=== PATIENT | female | born 1980 | race Caucasian/White ===

== ENCOUNTER → 2016-09-23 | Outpatient (CLI) | payer OTHER ==
--- NOTE | 2016-09-23 18:57 | US ---
Dear Elayne Alvarez CNM, Thank you for sending your patient, Claudia Barr, to us for an US and consultation to assess fet al anatomy. As you know, the patient is a 36 y.o. G1, P0 at 19 weeks and 6 days with an EDC of 7 based on LMP and 10 week ultrasound. Her has been uncomplicated to date. Claudia's medical history is significant for exercise induced asthma that is controlled with albuter ol prn. She also has a history of basal cell cancer that was removed by [facility] in 2004 and 2010. She un derwent surgery for tendon repair in her right hand. This is her first . She is currently ta toi PNV and has no drug allergies. Genetic Screening: NIPT reassuring (46 XY) The patient denies any uterine contractions, vaginal bleeding, or loss of fluid. Today, she is withou t complaints. US FINDINGS: Number of fetuses: 1 Placental location: Anterior, LOW-LYING measuring 1.8 cm from the internal cervical os Placental Cord Insertion: Central presentation: Transverse, head maternal left Cervix: 3.7 cm, transabdominally MVP: 4.1 cm The adnexa were evaluated. No pathology was seen. Right ovary: Suboptimal Left ovary: Suboptimal heart rate: 147 bpm Measurements: Biparietal diameter: 45 mm, 19 weeks 4 days Head circumference: 165 mm, 19 weeks 2 days Abdominal circumference: 141 mm, 19 weeks 4 days Femur length: 31 mm, 19 weeks 4 days Humerus length: 31 mm, 20 weeks 3 days Transcerebellar diameter: 20 mm, 19 weeks 0 days Average ultrasound age: 19 weeks 4 days Estimated weight: 294 g weight percentile: 24% ANATOMY Supratentorial brain: Normal Cerebral lateral ventricle: 7 mm Posterior fossa: Normal Cisterna magna: 4 mm Nuchal fold: 4 mm Lip: Normal Profile: Normal Alveolar Ridge: Appears intact Spine: -- Cervical: Normal -- Thoracic: Normal -- Lumbar: Normal -- Sacral: Normal Heart: -- 4 Chamber: Normal -- Intraventricular septum: Appears intact by Color and Spectral US -- Right Outflow Tract: Normal -- Left Outflow Tract: Normal -- 3 Vessel View: Normal Diaphragm: Appears intact Stomach: Normal Abdominal Umbilical Cord Insertion: Normal Right kidney: Normal Left kidney: Normal Bladder: Normal Number of cord vessels: 3 Upper extremities: -- Right Arm: Normal -- Right Hand: Limited -- Left Arm: Normal -- Left Hand: Limited Lower extremities: -- Right Leg: Normal -- Right Foot: Normal, no club foot -- Left Leg: Normal -- Left Foot: Normal, no club foot IMPRESSION: 1. Anatomy: The fetus measures appropriate for gestational age, measuring a normal weight and percen tile. Visualization of the fetus today reveals no overt structural anomalies. There is evidence of no rmal amniotic fluid, and movement was seen during the examination. 2. Genetic Screening: This patient has had reassuring NIPT results this . Today, no markers of aneuploidy were seen. While her screening and US results are reassuring, we reviewed that fe toñito aneuploidy can only be definitively excluded with diagnostic testing via amniocentesis. After thi s discussion, the patient does not wish to proceed with invasive testing at this time. 3. Low-Lying Placenta: Today, the inferior edge of the anterior placenta measures 1.8 cm from the int ernal cervical os. We discussed that this is likely to resolve as the uterus grows with advancing ges tational age. - US at 30-32 weeks to reassess placental position Thank you again for sending this patient to see us today. Approximately 15 minutes of a total visit t tiffany of 12 minutes were spent with this patient today in direct face to face counseling regarding louise kat's US findings and the above recommendations. Please feel free to contact me with any questions at . Patricia Callejas MD Maternal- Medicine
--- NOTE | 2016-09-24 16:52 | US ---
Ultrasound Obstetric Detailed Evaluation Indication: The estimated gestational age by LMP is 19 weeks and 6 days yielding an EDC of February 11, 2017. Comparison: None. Findings: Number: 1 Presentation: Transverse, head to maternal left. Placental Location: Anterior low lying, 1.8 cm from the internal cervical loss Cervix: 3.7 cm MVP: 4.1 cm Heart Rate: 147 bpm. Ovaries not visualized. Biometry: Biparietal Diameter: 44.6 mm 19 weeks, 4 days Head Circumference: 165.08 mm 19 weeks, 2 days Abdominal Circumference: 141.26 mm 19 weeks, 4 days Femur Length: 30.55 mm 19 weeks, 4 days Humerus Length: 31.26 mm 20 weeks, 3 days Transcerebellar Diameter: 19.59 mm 19 weeks, 0 days HC/AC: 1.17 (1.09 - 1.26) FL/BPD: 68% FL/AC: 22% Average Ultrasound Age: 19 weeks, 4 days EDC Based on Today's Average Ultrasound Age: February 13, 2017 Estimated weight is 294 gms +/- 43 gms. The estimated weight is at the 24 % based on previous dating. ANATOMY SURVEY: Supratentorial Brain: Normal Posterior Fossa: Normal Spine: Normal Nuchal fold: Normal Nose and Lips: Normal Facial Profile: Normal Heart: Four chamber heart. 147 bpm. Intact intraventricular septum. Cardiac Outflow Tracts: Normal Stomach: Normal Umbilical Cord Insertion: Normal Kidneys: Normal, no pyelectasis Bladder: Normal Number of Cord Vessels: Three Upper Extremities: Visualized Lower Extremities: Visualized. Impression: 1. Living cueto in transverse presentation. 2. Size concordant with dates. 3. No overt anomalies detected. 4. Anterior low-lying placenta. 5.Please see Dr. Patricia Caleljas's consult and recommendations.
== END ==
LOC: FIMAGING 08:17
PROVIDERS: ATTEND Midwife
DX: Z36 Encounter for antenatal screening of mother (principal); Z3A.20 20 weeks gestation of pregnancy; O26.892 Other specified pregnancy related conditions, second trimester

== ENCOUNTER → 2016-12-16 | Outpatient (CLI) | payer OTHER | LOC: FIMAGING 09:21 | PROVIDERS: ATTEND Midwife | DX: Z36 Encounter for antenatal screening of mother (principal); Z3A.32 32 weeks gestation of pregnancy ==

== ENCOUNTER → 2017-01-12 | Outpatient (CLI) | payer OTHER | LOC: FIMAGING 13:57 | PROVIDERS: ATTEND Midwife | DX: Z36 Encounter for antenatal screening of mother (principal); Z3A.35 35 weeks gestation of pregnancy; O32.1XX0 Maternal care for breech presentation, not applicable or unspecified ==

== ENCOUNTER 2017-01-23 07:06 | Inpatient (IN) | payer OTHER ==
[2017-01-23] MEDS ORDERED: TERBUTALINE SULFATE 1 MG/ML VIAL IV ONE (07:37)
[2017-01-23] MEDS ORDERED: TERBUTALINE SULFATE 1 MG/ML VIAL ONE (07:42)
[2017-01-23] MEDS ORDERED: OLIVE OIL 118 ML BTL ONE (07:46)
[2017-01-23 08:16] LABS: % IMMATURE GRANULYOCYTES 0.8 % (0.0-1.1); ABSOLUTE IMMATURE GRANULOCYTES 0.11 10^3/uL (0.00-0.10); ADD DIFF? NO; ADD MORPH? NO; ADD SCAN? NO; ATYPICAL LYMPHOCYTE FLAG 10 (0-99); FRAGMENT RBC FLAG 0 (0-99); HEMATOCRIT 38.1 % (38.0-47.0); HEMOGLOBIN 13.2 g/dL (12.6-16.3); LEFT SHIFT FLG 0 (0-99); LIPEMIA HEMOLYSIS FLAG 90 (0-99); MEAN CELL HEMOGLOBIN 31.7 pg (27.9-34.1); MEAN CELL HEMOGLOBIN CONCENTR. 34.6 g/dL (32.4-36.7); MEAN CELL VOLUME 91.6 fL (81.5-99.8); PLATELET CLUMPS FLAG 0 (0-99); PLATELET COUNT 218 10^3/uL (150-400); RED BLOOD CELL COUNT 4.16 10^6/uL (4.18-5.33); RED CELL DISTRIBUTION WIDTH 12.4 % (11.5-15.2)
[2017-01-23] MEDS ORDERED: BUPIVACAINE 0.25% 30 ML SDV ONE (08:17)
[2017-01-23] MEDS ORDERED: fentaNYL 100 MCG/2 ML INJ ONE (08:17)
[2017-01-23] MEDS ORDERED: PHENYLEPHRINE HCL 100 MCG/ML SYR ONE (08:18)
[2017-01-23] MEDS ORDERED: CITRIC ACID/SODIUM CITRATE 30 ML UDCUP PO ONE (08:57)
[2017-01-23] MEDS ORDERED: ceFAZolin 2 GM/DEXTROSE 100 ML IV ONE (08:57)
[2017-01-23] MEDS ORDERED: LR 500 ML IV ONE (08:57)
[2017-01-23] MEDS ORDERED: LR 1,000 ML IV SCH (09:00)
--- NOTE | 2017-01-23 09:02 | PDGENHP ---
History and Physical - Chief Complaint Breech, precclampsia - History of Present Illness Patient is a healthy 36 yo at 37w2d. uncomplicated until she was measuring size < dates at 36 weeks and US demonstrated overall growth in 14th%, however AC at 2nd% with borderline oligo. She was put in testing at that time which has been reassuring and fluid has improved to 9-10 cm BULMARO. Shortly after this she developed persistent mild range blood pressures, and protein/creatine ration of 0.6, consistent with preeclampsia without severe features. Given this diagnosis it was recommended she be delivered at 37 weeks. As she is breech she is here for attempted ECV this morning, and if not successful with proceed with delivery by C/S. Consents signed in office yesterday after being discussed ind etail. History Information - Allergies/Home Medication List Allergies/Adverse Reactions: No Known Allergies Allergy (Unverified 01/23/17 07:37) Home Medications: AZITHROMYCIN [Z-PACK] 250 mg PO DAILY 01/23/17 [Last Taken 01/23/17 500] Aspirin 81mg (*) 1 tab PO DAILY 01/23/17 [Last Taken 01/22/17] Loratadine [Claritin] 1 tab PO DAILY 01/23/17 [Last Taken 01/23/17 0600] 1 tab PO DAILY 01/23/17 [Last Taken 01/22/17] I have personally reviewed and updated: family history, medical history, social history, surgical history Past Medical History: None pertinent - Surgical History Additional surgical history: tonsillectomy - Family History Positive for: non-pertinent - Social History Alcohol Use: None Drug Use: None Additional social history: Review of Systems ROS: 10pt was reviewed & negative except for what was stated in HPI & below Physical Exam Physical Exam: BP: 140/92 Gen: NAD Resp: CTAB CV: RRR Abd: gravid, soft,nontender Ext: no edema FHR baseline 140, mod marleen, + acc, no decel [place]: No contractions Temp Pulse Resp BP Pulse Ox 84 140/92 H 01/23/17 08:00 01/23/17 08:00 Lab Data & Imaging Review 01/23/17 08:00 01/23/17 08:00 WBC 13.62 10^3/uL (3.80-9.50) H 01/23/17 08:00 RBC 4.16 10^6/uL (4.18-5.33) L 01/23/17 08:00 Hgb 13.2 g/dL (12.6-16.3) 01/23/17 08:00 Hct 38.1 % (38.0-47.0) 01/23/17 08:00 MCV 91.6 fL (81.5-99.8) 01/23/17 08:00 MCH 31.7 pg (27.9-34.1) 01/23/17 08:00 MCHC 34.6 g/dL (32.4-36.7) 01/23/17 08:00 RDW 12.4 % (11.5-15.2) 01/23/17 08:00 Plt Count 218 10^3/uL (150-400) 01/23/17 08:00 MPV 12.0 fL (8.7-11.7) H 01/23/17 08:00 Neut % (Auto) 73.4 % (39.3-74.2) 01/23/17 08:00 Lymph % (Auto) 18.8 % (15.0-45.0) 01/23/17 08:00 [place] % (Auto) 6.0 % (4.5-13.0) 01/23/17 08:00 Eos % (Auto) 0.6 % (0.6-7.6) 01/23/17 08:00 Baso % (Auto) 0.4 % (0.3-1.7) 01/23/17 08:00 Nucleat RBC Rel Count 0.0 % (0.0-0.2) 01/23/17 08:00 Absolute Neuts (auto) 10.00 10^3/uL (1.70-6.50) H 01/23/17 08:00 Absolute Lymphs (auto) 2.56 10^3/uL (1.00-3.00) 01/23/17 08:00 Absolute Monos (auto) 0.82 10^3/uL (0.30-0.80) H 01/23/17 08:00 Absolute Eos (auto) 0.08 10^3/uL (0.03-0.40) 01/23/17 08:00 Absolute Basos (auto) 0.05 10^3/uL (0.02-0.10) 01/23/17 08:00 Absolute Nucleated RBC 0.00 10^3/uL (0-0.01) 01/23/17 08:00 Immature Gran % 0.8 % (0.0-1.1) 01/23/17 08:00 Immature Gran # 0.11 10^3/uL (0.00-0.10) H 01/23/17 08:00 Assessment & Plan Assessment: G1 at 37w2d Preeclampsia without severe features Breech status reassuring Version was attempted after SC terbutaline 0.25 mg. Pt tolerated well and there were not changes to FHR throughout procedure. Attempted to turn in both directions, pt remains raymond breech and unable to successfully turn. Plan: Proceed with primary C/S for preeclampsia at 37w2d, breech
[2017-01-23] MEDS ORDERED: morphINE PF 5 MG/10 ML INJ ONE (09:04)
[2017-01-23] MEDS ORDERED: PHENYLEPHRINE 10 MG/ML SDV ONE (09:05)
[2017-01-23] MEDS ORDERED: ONDANSETRON 4 MG/2 ML VIAL ONE (09:05)
[2017-01-23] MEDS ORDERED: OXYTOCIN 100 UNITS/10 ML VIAL ONE (09:07)
[2017-01-23] MEDS ORDERED: BUPIVACAINE/DEXTROSE 7.5MG/ML 2 ML SPINAL AMP SP ONE (09:07)
[2017-01-23 09:09] LABS: ALANINE AMINOTRANSFERASE 28 IU/L (9-52); ASPARTATE AMINOTRANSFERASE 32 IU/L (14-46); BILIRUBIN,TOTAL 0.4 mg/dL (0.1-1.4); BILIRUBIN-CONJUGATED 0.3 mg/dL (0.0-0.5); BILIRUBIN-UNCONJUGATED 0.1 mg/dL (0.0-1.1); CREATININE 0.6 mg/dL (0.6-1.0); GLOMERULAR FILTRATION RATE > 60; LACTATE DEHYDROGENASE 606 IU/L (313-618); URIC ACID 5.9 mg/dL (2.5-6.8)
[2017-01-23] MEDS ORDERED: AMMONIA AROMATIC 1 EACH AMP IH ONE (09:09)
[2017-01-23] MEDS ORDERED: MISOPROSTOL 200 MCG TAB ONE (09:09)
[2017-01-23] MEDS ORDERED: OXYTOCIN 10 UNIT/ML VIAL ONE (09:09)
[2017-01-23] MEDS ORDERED: PROMETHAZINE HCL 25 MG/ML INJ IVP PRN (10:42)
[2017-01-23] MEDS ORDERED: SIMETHICONE 80 MG TAB CHEW PO PRN (10:42)
[2017-01-23] MEDS ORDERED: ACETAMINOPHEN 325 MG TAB PO PRN (10:42)
--- NOTE | 2017-01-23 10:42 | OBPROC ---
- Delivery Pre-op Diagnoses: breech- failed version Post-op Diagnoses: breech- failed version Procedure: Primary Surgeon: Giselle Machuca Tobacco Classer: Elayne Alvarez Anesthesiologist: Michael Shipman Rn Lvn/BUFFET WAITER/WAITRESS: Gretta Pemberton Anesthesia: Spinal Complications: None IV Fluid (ml): 2,700 EBL: 700 - Info A Delivery Date: 01/23/17 Delivery Time: 10:09 Sex of : Male Score (1 Min): 8 Score (5 Min): 9
[2017-01-23] MEDS ORDERED: LACTULOSE 20 GM/30 ML UDCUP PO PRN (10:44)
[2017-01-23] MEDS ORDERED: BISACODYL 10 MG SUPP PR PRN (10:44)
[2017-01-23] MEDS ORDERED: POLYETHYLENE GLYCOL 3350 17 GM PKT PO PRN (10:44)
[2017-01-23] MEDS ORDERED: MAGNESIUM HYDROXIDE 30 ML UDCUP PO PRN (10:44)
[2017-01-23] MEDS ORDERED: OXYCODONE/APAP 5/325 TAB PO PRN (11:09)
[2017-01-23] MEDS ORDERED: HYDROmorphONE/DILAUDID 1 MG/ML SYR IVP PRN (11:09)
[2017-01-23] MEDS ORDERED: PHENYLEPHRINE HCL 100 MCG/ML SYR IVP PRN (11:09)
[2017-01-23] MEDS ORDERED: ONDANSETRON 4 MG/2 ML VIAL IVP PRN ×2 (11:09)
[2017-01-23] MEDS ORDERED: MEPERIDINE 25 MG/ML SYR IVP PRN (11:09)
[2017-01-23] MEDS ORDERED: NALOXONE HCL 0.4 MG/ML INJ IVP PRN ×2 (11:09)
[2017-01-23] MEDS ORDERED: HYDROCODONE/APAP 5/325 TAB PO PRN (11:09)
[2017-01-23] MEDS ORDERED: fentaNYL 100 MCG/2 ML INJ IVP PRN (11:09)
--- NOTE | 2017-01-23 11:14 | POSTANESTH ---
Post Anesthetic Evaluation Cardiovascular Status: Normal, Stable Respiratory Status: Normal, Stable Level of Consciousness/Mental Status: Can Participate in Eval Pain Control: Adequate, Prn Tx Ordered Nausea/Vomiting Control: Adequate, Prn Tx Ordered Complications Possibly Related to Anesthesia: None Noted
[2017-01-23] MEDS: KETOROLAC 30 MG/1 ML SDV IVP PRN ×2 (12:21→19:10)
--- NOTE | 2017-01-23 14:51 | GOP ---
[f rep st] OPERATIVE REPORT DATE OF OPERATION: 01/23/2017 SURGEON: Giselle Machuca MD [employer] STOCK CLERK: Elayne Alvarez CNM. ANESTHESIA: Spinal. ANESTHESIOLOGIST: Michael Shipman MD PREOPERATIVE DIAGNOSIS: 1. Single intrauterine at 37 weeks 2 days gestation. 2. Breech presentation. 3. Failed external cephalic version. 4. Preeclampsia without severe features. 5. Abdominal circumference less than the 2nd percentile. 6. Asthma POSTOPERATIVE DIAGNOSIS: 1. Single intrauterine at 37 weeks 2 days gestation. 2. Breech presentation. 3. Failed external cephalic version. 4. Preeclampsia without severe features. 5. Abdominal circumference less than the 2nd percentile. 6. Asthma PROCEDURE PERFORMED: Primary low transverse section. FINDINGS: Viable male infant in breech presentation with spontaneous cry and noted to be vigorous after delivery with 's of 8 and 9 and a weight of 5 pounds 8 ounces. Normal uterus, normal bilateral tubes and ovaries. Otherwise normal intraabdominal findings. SPECIMENS: Placenta. ESTIMATED BLOOD LOSS: 700 mL. INDICATIONS: The patient is a 36-year-old, G1, P 0, at 37 weeks 2 days. She was measuring size less than dates at 36 weeks and an ultrasound demonstrated overall normal growth, but with the abdominal circumference less than the 2nd percentile. Shortly after this, she developed mild-range blood pressures that were persistent and she had elevated protein in her urine consistent with preeclampsia. She did not have symptoms and she had normal labs. Thus, she was diagnosed with preeclampsia without severe features, and it was recommended to proceed with delivery after 37 weeks. The patient was breech and she desired an attempt at external cephalic version. This was attempted prior to the delivery; however, was unsuccessful. She then consented to proceed with delivery of her infant. DESCRIPTION OF PROCEDURE: The patient was brought to the operating room and spinal anesthetic was performed. She was prepped and draped in the normal sterile fashion in supine position with a leftward tilt. A Parker catheter was placed. A time-out was performed with all parties present. status had been reassuring up to this point. A Pfannenstiel incision was made with a scalpel after confirming she had adequate anesthesia and was carried down to the fascia using cautery. The fascia was incised in the midline and was extended laterally on either side sharply. The fascia was then tented up superiorly and was dissected off the underlying rectus muscle. The same thing was completed inferiorly. The rectus muscles were and the peritoneum was entered bluntly and stretched. The bladder blade was placed. A bladder flap was made sharply and digitally. The bladder blade was replaced. A low transverse incision was made with a scalpel and then was stretched bluntly. The fetus was in raymond breech presentation and was delivered in the usual fashion for a breech . He was noted to have excellent tone and spontaneous cry after delivery. The cord was clamped and cut. Cord blood was obtained. The placenta was removed intact. The uterus was then exteriorized and was cleared of all clots. Tone was noted to be in mild to moderate at this time. The decision was made to give the patient 600 mg of Cytotec buccally. IV Pitocin had also been started. A running locked suture of 0 Monocryl was used to close the incision. A 2nd imbricating layer was performed using the same suture. Excellent hemostasis and tone were noted at this time. The uterus was replaced into the abdomen. The gutters were swabbed. Hemostasis was again confirmed at the hysterotomy site. It was also confirmed in the subfascial spaces and the rectus muscles. The fascia was closed with 0 Vicryl in a running fashion. The subcutaneous tissues were irrigated and hemostasis was assured. The subcutaneous tissues were reapproximated with 0 Vicryl and then the skin was closed with 4-0 Monocryl. The patient tolerated the procedure well. Counts were correct. She was brought to the recovery room in good condition. COMPLICATIONS: None. FLUIDS REPLACED: 2700 mL. URINE OUTPUT: 50 mL via Parker catheter. /[id number]/MODL MTDD
[2017-01-24] MEDS: KETOROLAC 30 MG/1 ML SDV IVP PRN ×2 (01:43→07:51)
[2017-01-24] MEDS: DOCUSATE SODIUM 100 MG CAP PO PRN ×2 (07:52→20:13)
--- NOTE | 2017-01-24 09:23 | OBPROG ---
OBG Progress Note Assessment/Plan: Assessment: POD#1 s/p pLTCS at 37w2d for breech after failed ECV Preeclampsia without severe features, now BPs in normal range Recovering appropriately Plan: Routine pp care Labs not yet drawn today, pending D/C stubbs Ambulation Oral pain meds 01/24/17 09:21 Subjective: Feels well. Baby too sleepy to latch just yet. Pain controlled with toradol. Hasn't ambulated yet. Tolerating regular diet. Denies PIH symptoms Objective: 01/23/17 08:00 01/23/17 08:00 Patient ABO/Rh O POSITIVE 01/23/17 08:00 Uric Acid 5.9 mg/dL (2.5-6.8) 01/23/17 08:00 Total Bilirubin 0.4 mg/dL (0.1-1.4) 01/23/17 08:00 Conjugated Bilirubin 0.3 mg/dL (0.0-0.5) 01/23/17 08:00 Unconjugated Bilirubin 0.1 mg/dL (0.0-1.1) 01/23/17 08:00 AST 32 IU/L (14-46) 01/23/17 08:00 ALT 28 IU/L (9-52) 01/23/17 08:00 Lactate Dehydrogenase 606 IU/L (313-618) 01/23/17 08:00 Temp Pulse Resp BP Pulse Ox 36.4 C 77 16 122/79 H 95 01/24/17 04:35 01/24/17 04:35 01/24/17 04:35 01/24/17 04:35 01/24/17 04:35 Gen: alert, awake, NAD Resp: unlabored CV: RRR Abd: soft, nontender, non distended Incision: c/d/i with steri-strips Ext: no edema ICD10 Worksheet Patient Problems: Problems Problem Status Onset delivery delivered Acute Pre-eclampsia Acute MRSA (methicillin resistant Staphylococcus aureus) Acute 10/02/16 - ICD10 Problem Qualifiers (1) delivery delivered (2) Pre-eclampsia Qualifiers: Trimester: T
[2017-01-24 11:37] LABS: ADD DIFF? NO; ADD MORPH? NO; ADD SCAN? NO
[2017-01-24 11:42] LABS: ALANINE AMINOTRANSFERASE 28 IU/L (9-52); ASPARTATE AMINOTRANSFERASE 41 IU/L (14-46); BILIRUBIN,TOTAL 0.4 mg/dL (0.1-1.4); BILIRUBIN-CONJUGATED 0.3 mg/dL (0.0-0.5); BILIRUBIN-UNCONJUGATED 0.1 mg/dL (0.0-1.1); CREATININE 0.6 mg/dL (0.6-1.0); GLOMERULAR FILTRATION RATE > 60; LACTATE DEHYDROGENASE 836 IU/L (313-618); URIC ACID 5.6 mg/dL (2.5-6.8)
[2017-01-24 11:46] LABS: % IMMATURE GRANULYOCYTES 0.7 % (0.0-1.1); ABSOLUTE IMMATURE GRANULOCYTES 0.09 10^3/uL (0.00-0.10); ATYPICAL LYMPHOCYTE FLAG 0 (0-99); FRAGMENT RBC FLAG 0 (0-99); HEMATOCRIT 38.1 % (38.0-47.0); HEMOGLOBIN 12.9 g/dL (12.6-16.3); LEFT SHIFT FLG 0 (0-99); LIPEMIA HEMOLYSIS FLAG 90 (0-99); MEAN CELL HEMOGLOBIN 31.2 pg (27.9-34.1); MEAN CELL HEMOGLOBIN CONCENTR. 33.9 g/dL (32.4-36.7); MEAN CELL VOLUME 92.3 fL (81.5-99.8); MEAN PLATELET VOLUME 11.9 fL (8.7-11.7); PLATELET CLUMPS FLAG 0 (0-99); PLATELET COUNT 237 10^3/uL (150-400); RED BLOOD CELL COUNT 4.13 10^6/uL (4.18-5.33); RED CELL DISTRIBUTION WIDTH 12.5 % (11.5-15.2)
[2017-01-24] MEDS: HYDROCODONE/APAP 5/325 TAB PO PRN ×2 (12:39→22:39)
[2017-01-24] MEDS: IBUPROFEN 600 MG TAB PO PRN ×2 (13:36→20:13)
[2017-01-25] MEDS: IBUPROFEN 600 MG TAB PO PRN ×4 (02:10→21:34)
[2017-01-25] MEDS: DOCUSATE SODIUM 100 MG CAP PO PRN ×2 (08:19→20:27)
--- NOTE | 2017-01-25 08:44 | SOAPPROG ---
SOAP Progress Note Assessment/Plan: Assessment: 36 yo s/p ltcs for breech, pod 2, with mild pre-eclampsia, doing well. Plan: 01/25/17 08:41 rh +, rubella immune. Blood pressures in the mild range, will continue to monitor. If trend greater than 160/110, will begin bp medications. Labs are normal, no significant pre- eclampsia symptoms. Continue routine postop care, anticipate d/c home tomorrow. Subjective: 36 yo s/p ltcs for breech, pod 2, with mild pre-eclampsia, doing well. Objective: Vital Signs Temp Pulse Resp BP Pulse Ox 36.4 C 71 16 140/94 H 97 01/25/17 04:00 01/25/17 04:00 01/25/17 04:00 01/25/17 04:00 01/25/17 04:00 Laboratory Results 01/24/17 10:20 01/24/17 10:20 01/24/17 01/25/17 01/26/17 05:59 05:59 05:59 Intake Total 4800 Output Total 5900 2200 Balance -1100 -2200 Physical Exam - Physical Exam General Appearance: no apparent distress Respiratory: lungs clear Cardiac/Chest: regular rate, rhythm Abdomen: non-tender Skin: warm/dry Extremities: non-tender Neuro/Psych: oriented x 3 ICD10 Worksheet Patient Problems: Problems Problem Status Onset delivery delivered Acute Pre-eclampsia Acute MRSA (methicillin resistant Staphylococcus aureus) Acute 10/02/16
[2017-01-25] MEDS: HYDROCODONE/APAP 5/325 TAB PO PRN ×2 (15:54→21:33)
[2017-01-26] MEDS: IBUPROFEN 600 MG TAB PO PRN ×3 (03:54→16:18)
--- NOTE | 2017-01-26 11:00 | SOAPPROG ---
SOAP Progress Note Assessment/Plan: Assessment: 36 yo s/p LTCS for breech, POD#3, with mild pre-eclampsia - clinically stable Plan: 1) Preeclampsia: BP much higher this AM, diastolic in the severe range. Asymptomatic. PIH labs normal and stable from antepartum to . Will start on low dose of labetalol 100mg BID and monitor x 24 hrs. If BP's stable and she is tolerating it well, plan discharge home tomorrow. 2) Routine PP care 3) RH+/RI 4) Dispo: Observe x 24 hrs on BP meds, d/c home tomorrow 01/26/17 11:00 Subjective: Pt feels well, no complaints. Lochia diminishing, breast feeding progressing, pain well controlled. No CAPELLAN/visual changes/RUQ pain. BP elevated more significantly this AM. Objective: Vital Signs Temp Pulse Resp BP Pulse Ox 36.6 C 86 16 149/105 H 95 01/26/17 08:00 01/26/17 08:00 01/26/17 08:00 01/26/17 08:00 01/25/17 20:00 Laboratory Results 01/24/17 10:20 01/24/17 10:20 01/25/17 01/26/17 01/27/17 05:59 05:59 05:59 Output Total 2200 Balance -2200 Physical Exam - Physical Exam General Appearance: WD/WN, alert, no apparent distress Respiratory: lungs clear Cardiac/Chest: regular rate, rhythm Abdomen: normal bowel sounds, non-tender, soft, other (fundus firm, incision c/d /i) Pelvic Exam: deferred Neuro/Psych: alert, oriented x 3, other (DTR's 2+ bilaterally) ICD10 Worksheet Patient Problems: Problems Problem Status Onset delivery delivered Acute Pre-eclampsia Acute MRSA (methicillin resistant Staphylococcus aureus) Acute 10/02/16
[2017-01-26] MEDS: LABETALOL HCL 100 MG TAB PO SCH ×2 (11:06→21:17)
[2017-01-26] MEDS: HYDROCODONE/APAP 5/325 TAB PO PRN ×2 (18:09→21:18)
[2017-01-27] MEDS: IBUPROFEN 600 MG TAB PO PRN ×2 (00:09→12:44)
[2017-01-27] MEDS: HYDROCODONE/APAP 5/325 TAB PO PRN (05:06)
[2017-01-27 05:35] LABS: % IMMATURE GRANULYOCYTES 0.4 % (0.0-1.1); ABSOLUTE IMMATURE GRANULOCYTES 0.03 10^3/uL (0.00-0.10); ADD DIFF? NO; ADD MORPH? NO; ADD SCAN? NO; ATYPICAL LYMPHOCYTE FLAG 0 (0-99); FRAGMENT RBC FLAG 0 (0-99); HEMATOCRIT 39.8 % (38.0-47.0); HEMOGLOBIN 13.5 g/dL (12.6-16.3); LEFT SHIFT FLG 0 (0-99); LIPEMIA HEMOLYSIS FLAG 90 (0-99); MEAN CELL HEMOGLOBIN 31.3 pg (27.9-34.1); MEAN CELL HEMOGLOBIN CONCENTR. 33.9 g/dL (32.4-36.7); MEAN CELL VOLUME 92.1 fL (81.5-99.8); MEAN PLATELET VOLUME 10.8 fL (8.7-11.7); PLATELET CLUMPS FLAG 0 (0-99); PLATELET COUNT 217 10^3/uL (150-400); RED BLOOD CELL COUNT 4.32 10^6/uL (4.18-5.33); RED CELL DISTRIBUTION WIDTH 12.6 % (11.5-15.2)
[2017-01-27 05:44] LABS: ALANINE AMINOTRANSFERASE 51 IU/L (9-52); ALKALINE PHOSPHATASE 99 IU/L (38-126); ANION GAP 6 mEq/L (8-16); ASPARTATE AMINOTRANSFERASE 51 IU/L (14-46); BILIRUBIN,TOTAL 0.3 mg/dL (0.1-1.4); CALCIUM 8.9 mg/dL (8.5-10.4); CARBON DIOXIDE 24 mEq/l (22-31); CHLORIDE 107 mEq/L (97-110); CREATININE 0.6 mg/dL (0.6-1.0); GLOMERULAR FILTRATION RATE > 60; GLUCOSE 66 mg/dL (70-100); POTASSIUM 4.4 mEq/L (3.5-5.2); SODIUM 137 mEq/L (134-144); TOTAL PROTEIN 5.7 g/dL (6.3-8.2); URIC ACID 5.7 mg/dL (2.5-6.8)
[2017-01-27 06:43] VITALS: PULSE 70
[2017-01-27] MEDS: DOCUSATE SODIUM 100 MG CAP PO PRN (09:07)
[2017-01-27] MEDS: LABETALOL HCL 100 MG TAB PO SCH (09:07)
[2017-01-27 10:07] VITALS: RESP 18; TEMP 97.8; O2SAT 95
[2017-01-27 12:22] LABS: % IMMATURE GRANULYOCYTES 0.4 % (0.0-1.1); ABSOLUTE IMMATURE GRANULOCYTES 0.04 10^3/uL (0.00-0.10); ADD DIFF? NO; ADD MORPH? NO; ADD SCAN? NO; ATYPICAL LYMPHOCYTE FLAG 10 (0-99); FRAGMENT RBC FLAG 0 (0-99); HEMATOCRIT 34.7 % (38.0-47.0); HEMOGLOBIN 11.9 g/dL (12.6-16.3); LEFT SHIFT FLG 0 (0-99); LIPEMIA HEMOLYSIS FLAG 90 (0-99); MEAN CELL HEMOGLOBIN 31.8 pg (27.9-34.1); MEAN CELL HEMOGLOBIN CONCENTR. 34.3 g/dL (32.4-36.7); MEAN CELL VOLUME 92.8 fL (81.5-99.8); MEAN PLATELET VOLUME 10.9 fL (8.7-11.7); PLATELET CLUMPS FLAG 0 (0-99); PLATELET COUNT 287 10^3/uL (150-400); RED BLOOD CELL COUNT 3.74 10^6/uL (4.18-5.33); RED CELL DISTRIBUTION WIDTH 12.7 % (11.5-15.2)
[2017-01-27 12:29] LABS: ALANINE AMINOTRANSFERASE 54 IU/L (9-52); ASPARTATE AMINOTRANSFERASE 57 IU/L (14-46); BILIRUBIN,TOTAL 0.4 mg/dL (0.1-1.4); BILIRUBIN-CONJUGATED 0.3 mg/dL (0.0-0.5); BILIRUBIN-UNCONJUGATED 0.1 mg/dL (0.0-1.1); CREATININE 0.7 mg/dL (0.6-1.0); GLOMERULAR FILTRATION RATE > 60; LACTATE DEHYDROGENASE 594 IU/L (313-618); URIC ACID 5.9 mg/dL (2.5-6.8)
--- NOTE | 2017-01-27 12:49 | SOAPPROG ---
SOAP Progress Note Assessment/Plan: Assessment: 36 y.o female s/p primary C/S for breech and PIH. PPD #4 with elevated BP readings and increased LFTs. Plan: Discussed lab and BP results with Dr. CROWE. Will recheck labs tomorrow AM. 01/27/17 12:46 Subjective: Reports feeling well with good pain control and minimal vaginal bleeding. Incision CDI and healing well. Ambulating well without vertigo. with minimal assistance. Eating and drinking well without n/v. Denies current headaches, visual changes or RUQ pain. Good support system. Objective: Vital Signs Temp Pulse Resp BP Pulse Ox 36.6 C 70 18 120/79 95 01/27/17 09:00 01/27/17 09:07 01/27/17 09:00 01/27/17 11:00 01/27/17 09:00 Laboratory Results 01/27/17 12:00 01/27/17 12:00 - Time Spent With Patient Time Spent With Patient: 20 minutes - Pending Discharge Pending Discharge Within 24 Hours: Yes Pending Discharge Date: 01/28/17 Pending Discharge Time: 11:00 Physical Exam - Physical Exam General Appearance: WD/WN, alert, no apparent distress EENT: normal ENT inspection Neck: non-tender, full range of motion, normal inspection Respiratory: lungs clear, normal breath sounds Cardiac/Chest: regular rate, rhythm Abdomen: non-tender, soft Pelvic Exam: normal external exam Rectal: deferred Back: Normal inspection Skin: normal color, warm/dry Extremities: non-tender, normal inspection Neuro/Psych: alert, normal mood/affect, oriented x 3 ICD10 Worksheet Patient Problems: Problems Problem Status Onset delivery delivered Acute Pre-eclampsia Acute MRSA (methicillin resistant Staphylococcus aureus) Acute 10/02/16
--- NOTE | 2017-01-27 13:06 | OBGCSDC ---
General Delivery Information - General Info : 1 Para: 1 Delivery Physician/CNM: Giselle Machuca [employer] Supervisor: Elayne Alvarez Labs: Patient ABO/Rh O POSITIVE 01/23/17 08:00 Hct 34.7 % (38.0-47.0) L 01/27/17 12:00 - Delivery IUP (Weeks): 37 Number of Prior Sections: 0 Indications for Current Section: Breech Procedures: LTCS Intra-op Complications: None EBL: 700 Anesthesia: Spinal Discharge Information - Discharge Information Discharge Medications: Ibuprofen, Vitamins, Vicodin Complications: breech, PIH Condition: Good Instruction/Follow Up: Two Weeks, Six Weeks Discharge Physician/CNM: Elayne Alvarez Discharge Date: 01/27/17 Dictated: No
[2017-01-27 15:53] VITALS: BP 137/89
== END 2017-01-27 15:00 | disposition home or self-care (01) | DRG 766 ==
LOC: FLD 07:06 → FOB 13:18
PROVIDERS: ADMIT Obstetrics & Gynecology; ATTEND Obstetrics & Gynecology
PROC: 10D00Z1 Extraction of Products of Conception, Low, Open Approach (ICD-10-PCS; principal; 2017-01-23)
PROC: 10S0XZZ Reposition Products of Conception, External Approach (ICD-10-PCS; principal; 2017-01-23)
DX: O32.1XX0 Maternal care for breech presentation, not applicable or unspecified (principal); O14.94 Unspecified pre-eclampsia, complicating childbirth; Z3A.37 37 weeks gestation of pregnancy; Z37.0 Single live birth
CPT/HCPCS: J0690; J1885; J2274; J2370; J2405; J2550; J2590; J3010; J3105

== ENCOUNTER → 2017-02-03 | Outpatient (CLI) | payer OTHER | LOC: FLACT 14:07 | PROVIDERS: ATTEND Midwife | DX: O92.79 Other disorders of lactation (principal) | CPT/HCPCS: G0463 ==

== ENCOUNTER → 2017-02-09 | Outpatient (CLI) | payer OTHER | LOC: FLACT 14:30 | PROVIDERS: ATTEND Midwife | DX: Z39.1 Encounter for care and examination of lactating mother (principal) | CPT/HCPCS: G0463 ==

== ENCOUNTER 2017-02-23 11:45 | Emergency (ER) | payer OTHER ==
[2017-02-23 11:51] VITALS: BP 135/100; PULSE 94; RESP 18; TEMP 97.5; O2SAT 97
--- NOTE | 2017-02-23 12:10 | EDPHY ---
H & P Stated Complaint: Allergic reation for 1 week, sent by . Time Seen by Provider: 02/23/17 12:10 - Personal History LMP (Females 10-55): Irregular Current Tetanus Diphtheria and Acellular Pertussis (TDAP): Yes - Medical/Surgical History Hx Asthma: No Hx Chronic Respiratory Disease: No Hx Diabetes: No Hx Cardiac Disease: No Hx Renal Disease: No Hx Cirrhosis: No Hx Alcoholism: No Hx HIV/AIDS: No Hx Splenectomy or Spleen Trauma: No Other PMH: MRSA carrier, tonsillectomy as child, basal cell skin cancer x 2, right hand surgery, exercise induced asthma, allergies year round-immunotherapy , h/o abnl pap with colpo - Social History Smoking Status: Never smoked Constitutional: Initial Vital Signs Temperature (C) 36.4 C 02/23/17 11:45 Heart Rate 94 02/23/17 11:45 Respiratory Rate 18 02/23/17 11:45 Blood Pressure 135/100 H 02/23/17 11:45 O2 Sat (%) 97 02/23/17 11:45 O2 Delivery Mode Room Air Allergies/Adverse Reactions: thimerosal Allergy (Verified 01/23/17 10:03) Home Medications: Medication Instructions Recorded Loratadine [Claritin] 1 tab PO DAILY 01/23/17 1 tab PO DAILY 01/23/17 Ibuprofen [Motrin (*)] 600 mg PO Q6HRS PRN #60 tab 01/27/17 Labetalol HCl [Trandate 100 mg (*)] 100 mg PO BID #60 tab 01/27/17 Triazolam [Halcion 0.25MG (*)] 0.25 mg PO HS PRN #7 tab 02/23/17 methylPREDNISolone [Medrol Dose 1 each PO AD #1 ea 02/23/17 Ken] Medical Decision Making ED Course/Re-evaluation: CHIEF COMPLAINT: Rash HISTORY OF PRESENT ILLNESS: The patient is a 36 y/o female complaining of worsening diffuse pruritic rash over the last week. She was treated for mastitis with dicloxacillin about 2 weeks ago, but did not have any improvement after 3-4 days and was switched to clindamycin about one week ago. Shortly afterwards she developed a red rash on her trunk. The rash worsened so she went to urgent care five days ago and was started on prednisone and hydroxyzine. She has had no improvement in symptoms and the rash has spread to her limbs and is quite uncomfortable and pruritic. She has facial swelling now as well. Her mastitis has resolved and she is currently and pumping. She began labetalol began during for pre-eclampsia and is still taking it. She has a history of environmental allergies and is followed by her skin specialist for those. REVIEW OF SYSTEMS: A 10 point review of systems was performed and is negative with the exception of the elements mentioned in the history of present illness. PHYSICAL EXAM: HR, BP, O2 Sat, RR. Temp noted General Appearance: Alert, well hydrated, appropriate, and non-toxic appearing. Head: Atraumatic without scalp tenderness or obvious injury Eyes: Pupils equal, round, reactive to light and accommodation, EOMI, no trauma , no injection. Nose: Atraumatic, no rhinorrhea, clear. Throat: Mucus membranes moist. Neck: Supple, nontender, no lymphadenopathy. Respiratory: No retractions, no distress, no wheezes, and no accessory muscle use. Lungs are clear to auscultation bilaterally. Cardiovascular: Regular rate and rhythm, no murmurs, rubs, or gallops. Good capillary refill all extremities. Gastrointestinal: Abdomen is soft, nontender, non-distended, no masses, no rebound, no guarding, no peritoneal signs. Musculoskeletal: Normal active ROM of all extremities, atraumatic. Neurological: Alert, appropriate, and interactive. Nonfocal neuro exam. Skin: Good turgor, no nodules on palpation. Maculopapular confluent rash on trunk, abdomen, chest, thighs, back, and feet. Past medical history: Mastitis, mild pre-eclampsia Past surgical history: one month ago Family history: noncontributory Social history: Friend at bedside. , 1m/o at home. 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 Mccann DIFFERENTIAL DIAGNOSIS: The differential diagnosis included but was not limited to antibiotic drug reaction, angioedema, anaphylaxis, anaphylactoid reaction, urticarial reaction, and other infectious causes for skin rash. MEDICAL DECISION MAKING: This is a healthy 36 y/o female presenting with a one-week history of persistent and worsening diffuse maculopapular pruritic rash after starting antibiotics for mastitis. She has no airway or respiratory involvement. We discussed multiple options for treatment in consideration of her current needs. We settled on treatment with Medrol, Claritin, and Halcion. She will pump and dump milk during this time. She has an existing relationship with her skin specialist whom she will follow up with when symptoms resolve. Return precautions given. She is comfortable with this plan. Departure - Departure Disposition: Home, Routine, Self-Care Clinical Impression: Allergic reaction Qualifiers: Encounter type: initial encounter Qualified Code(s): T78.40XA - Allergy, unspecified, initial encounter Condition: Good Instructions: Antibiotic Medication Allergy (ED), General Allergic Reaction (ED ) Additional Instructions: 1. Take Medrol as prescribed for symptoms. Complete the entire prescription. 2. Use Halcion as prescribed for sleep. Be sure someone else is available to care for your child during this time. 3. Take Claritin daily for symptoms. 4. Pump breastmilk and do not feed it to your child for the next week while taking these medications. Safe to resume after 1 week. 5. Follow up with your skin specialist after symptoms have resolved for further evaluation. Do not take clindamycin. 6. Return to the ED for shortness of breath, fever, or other worsening of condition. Referrals: NONE *PRIMARY CARE P,. [Primary Care Provider] - As per Instructions Viet Mccann MD [Medical Doctor] - As per Instructions Prescriptions: methylPREDNISolone [Medrol Dose Ken] 1 each PO AD #1 ea Triazolam [Halcion 0.25MG (*)] 0.25 mg PO HS PRN #7 tab PRN Reason: Sleep/Insomnia Report Scribed for: Joel Chakraborty Report Scribed by: Maru Mckeon Date of Report: 02/23/17 Time of Report: 12:23
== END 2017-02-23 12:45 | disposition home or self-care (01) ==
DX: R21 Rash and other nonspecific skin eruption (principal); T36.8X5A Adverse effect of other systemic antibiotics, initial encounter; Z85.828 Personal history of other malignant neoplasm of skin

== ENCOUNTER → 2017-12-01 | Outpatient (CLI) | payer OTHER | LOC: FIMAGING 08:06 | PROVIDERS: ATTEND Midwife | DX: O09.522 Supervision of elderly multigravida, second trimester (principal); Z79.82 Long term (current) use of aspirin; Z3A.13 13 weeks gestation of pregnancy; Z98.891 History of uterine scar from previous surgery; Z87.59 Personal history of other complications of pregnancy, childbirth and the puerperium ==

== ENCOUNTER → 2018-02-04 | Outpatient (CLI) | payer OTHER | LOC: FIMAGING 07:30 | PROVIDERS: ATTEND Midwife | DX: O09.522 Supervision of elderly multigravida, second trimester (principal); Z3A.22 22 weeks gestation of pregnancy; Z87.59 Personal history of other complications of pregnancy, childbirth and the puerperium ==